=== PATIENT | male | born 1980 | race Caucasian/White ===

== ENCOUNTER 2020-08-24 20:04 | Emergency (ER) | payer OTHER ==
[~2020-08-24] VITALS: Ht 190.5 cm; Wt 93.2 kg
[2020-08-24 20:12] VITALS: Ht 190.5 cm; Wt 93.2 kg
[2020-08-24] MEDS ORDERED: SYMBICORT 16010.2 GM INH (20:13)
[2020-08-24] MEDS ORDERED: PROAIR HFA8.5 G1 INH (20:13)
[2020-08-24 21:50] VITALS: BP 126/75
== END 2020-08-24 21:51 | disposition home or self-care (01) ==
LOC: D.ER 20:04
DX: K22.2 Esophageal obstruction (principal); J45.909 Unspecified asthma, uncomplicated

== ENCOUNTER 2020-08-26 05:54 | Day surgery (SDC) | payer SELFPAY ==
[~2020-08-26] VITALS: Ht 190.5 cm; Wt 93.0 kg
[~2020-08-26 05:54] MED LIST: PROAIR HFA8.5 G1 INH; SYMBICORT 16010.2 GM INH
[2020-08-26 05:58] VITALS: BP 145/83; Ht 190.5 cm; Wt 93.0 kg
[2020-08-26 07:41] LABS: BASOPHILS 1.1 % (0-2); EOSINOPHILS 3.7 % (0-7); HEMATOCRIT 43.7 % (42.0-54.0); HEMOGLOBIN 15.1 g/dL (13.5-17.5); LYMPHOCYTES 35.1 % (15-50); MCH 30.6 pg (26.0-34.0); MCHC 34.5 g/dL (31.0-37.0); MCV 88.9 fL (80.0-100.0); MONOCYTES 12.7 % (2-11); NEUTROPHILS 47.4 % (40-80); PLATELET COUNT 210 10x3/uL (130-400); RBC 4.92 10x6/uL (4.20-6.10); RDW 13.2 % (11.5-14.5); WBC 6.3 10x3/uL (4.8-10.8)
[2020-08-26 07:56] LABS: CALC OSMOLALITY 284 mosm/kg (275-300); CALCIUM 9.5 mg/dL (8.5-10.1); CARBON DIOXIDE 29.5 mmol/L (21.0-32.0); CHLORIDE - SERUM 102 mmol/L (98-107); CREATININE - SERUM 0.9 mg/dL (0.6-1.3); GLUCOSE 93 mg/dL (74-106); POTASSIUM - SERUM 3.9 mmol/L (3.5-5.1); SODIUM 142 mmol/L (136-145); UREA NITROGEN 19 mg/dL (7-18); eGFR NON AFRICAN AMERICAN > 90 mL/min (90-120)
[2020-08-26 07:59] LABS: INR 1.09 (0.85-1.17)
[2020-08-26 08:02] LABS: ALBUMIN 4.9 g/dL (3.4-5.0); ALKALINE PHOSPHATASE 64 U/L (30-120); ALT (SGPT) 63 U/L (10-68); BILIRUBIN - TOTAL 1.08 mg/dL (0.2-1.3); PROTEIN - SERUM 7.8 g/dL (6.4-8.2)
[2020-08-26] MEDS ORDERED: PROTONIX20 MG PO (09:41)
[2020-08-26] MEDS ORDERED: MYLANTA / MAALO30 ML PO (09:42)
--- NOTE | 2020-08-26 10:50 | NUR ---
DC TEACHING TO PT AND , VERBALIZED UNDERSTANDING. PIV REMOVED WITH CATHETER INTACT, PT DRESSING WITH HELPING 1135 PT DC'D VIA WC ACCOMPANIED BY THIS NURSE TO POV WITH ALL BELONGINGS AND DC PAPERS, DRIVING. F/U APPT MADE BY THIS NURSE
== END 2020-08-26 11:35 | disposition home or self-care (01) ==
LOC: D.ER 05:54 → D.OPS 08:36
PROVIDERS: Family Medicine; ATTEND Surgery
DX: T18.128A Food in esophagus causing other injury, initial encounter (principal); K22.2 Esophageal obstruction